=== PATIENT | female | born 1970 | race Two or more races ===

== ENCOUNTER 2016-11-17 07:41 | Day surgery (SDC) | payer OTHER ==
[~2016-11-17 07:41] MED LIST: FERROUS SULFAT325 MG PO; KEFLEX500 M4 PO; MILK OF MAGNESIA PO; MOTRIN IB200 M1 PO; NORCO 5-325 TA1 EACH PO; TYLENOL EXTRA500 M1 PO
[2016-11-17] MEDS ORDERED: NO HOME MEDICATION (08:22)
[2016-11-17 08:38] LABS: BASO % 0.3 % (0-2); EOS % 2.7 % (0-7); EOSINOPHIL ABSOLUTE COUNT 0.1 tho/cmm (0.0-0.7); HGB-HEMOGLOBIN 14.3 gm/dl (12.0-15.5); IMMATURE GRANULOCYTES ABSOLUTE 0.01 tho/cmm (0-0.03); IMMATURE GRANULOCYTES PERCENT 0.3 % (0-0.3); LYMPH % 39.3 % (20-45); LYMPH ABSOLUTE COUNT 1.3 tho/cmm (0.8-4.5); MCH (MEAN CORPUSCULAR HGB) 33.6 pg (28.0-32.0); MCHC MEAN CORPUSCULAR HGB CONC 34.9 % (32.0-36.0); MCV (MEAN CELL VOLUME) 96.5 fl (82.0-96.0); MEAN PLATELET VOLUME 8.9 cmc (9.4-12.4); MONO % 11.2 % (0-12); MONOCYTE ABSOLUTE COUNT 0.4 tho/cmm (0.0-1.2); NEUTROPHIL ABSOLUTE COUNT 1.6 tho/cmm (1.6-8.0); NEUTROPHIL-AUTOMATED 1.6 tho/cmm (1.6-8.0); NEUTROPHILS % 46.2 % (40-80); PLATELET COUNT 205 tho/cmm (150-450); RED BLOOD COUNT 4.25 mil/cmm (4.00-5.20); RED CELL DISTRIBUTION WIDTH 12.8 % (12.4-16.4); WHITE BLOOD COUNT 3.4 tho/cmm (4.0-10.0)
== END 2016-11-17 12:42 ==
LOC: SRG 07:41 → SHSB 07:45 → SRG 08:00 → ORW 10:01 → PACU 10:57 → SHSB 11:25 → SRG 12:42
PROVIDERS: Specialist
PROC: 0HBT0ZZ Excision of Right Breast, Open Approach (ICD-10-PCS; principal; 2016-11-17)
DX: D24.1 Benign neoplasm of right breast (principal); Z85.3 Personal history of malignant neoplasm of breast; Z90.12 Acquired absence of left breast and nipple; Z98.51 Tubal ligation status; Z98.890 Other specified postprocedural states
CPT/HCPCS: A4648; J0690; J2250; J2765; J3010